=== PATIENT | female | born 1965 | race American Indian/Alaskan Native ===

== ENCOUNTER 2021-12-17 09:15 | Emergency (ER) | payer OTHER ==
[~2021-12-17] VITALS: Ht 165.1 cm; Wt 75.8 kg
== END 2021-12-17 10:30 | disposition home or self-care (01) ==
LOC: ED 09:15
DX: I10 Essential (primary) hypertension (principal); F41.9 Anxiety disorder, unspecified; Z79.899 Other long term (current) drug therapy
CPT/HCPCS: 99283

== ENCOUNTER 2023-09-17 00:14 | Emergency (ER) | payer OTHER ==
[~2023-09-17] VITALS: Ht 165.1 cm; Wt 85.0 kg
[2023-09-17] MEDS ORDERED: LISINOPRIL20 MG PO (00:25)
[2023-09-17 00:37] LABS: BASOPHILS 1.1 % (0-2); EOSINOPHILS 4.5 % (0-6); LYMPHOCYTES 28.7 % (24-44); MCH 29.8 (27-36); MCHC 34.2 g/dl (30-36); MCV 87.3 fl (81-99); MONOCYTES 10.7 % (0-12); PLATELET COUNT 310 K/uL (140-440); RBC 4.69 M/ul (4.3-5.7); RDW 14.3 (10.5-15.0)
[2023-09-17 00:57] LABS: ALBUMIN 3.4 g/dL (3.4-5.0); ALBUMIN/GLOBULIN RATIO 0.97 (1.1-2.4); ANION GAP 12.6 (7-21); BILIRUBIN, TOTAL 0.1 ng/dL (0.2-1.0); BUN/CREATININE RATIO 17.94 (6.0-28.6); CALCIUM 8.6 mg/dL (8.5-10.1); CREATININE, SERUM 0.78 mg/dL (0.55-1.02); MAGNESIUM 1.9 mg/dL (1.8-2.4); POTASSIUM 3.6 mmol/L (3.5-5.1); PROTEIN, TOTAL 6.9 g/dL (6.4-8.2)
[2023-09-17 01:00] VITALS: BP 133/90
--- NOTE | 2023-09-17 12:54 | EKG ---
[facility] [address] [place], [place] [address] Signed Normal sinus rhythm Normal ECG No previous ECGs available Confirmed by Thad De La O MD [id number]) on 09/17/2023 12:54:31 PM Electronically Signed By: THAD DE LA O 09/17/23 1254 PATIENT NAME: SHANELL DURHAM Electrocardiogram DATE OF : 67 PHYSICIAN: THAD DE LA O REPORT #: [id number] REPORT IS CONFIDENTIAL AND NOT TO BE RELEASED WITHOUT AUTHORIZATION
== END 2023-09-17 01:00 | disposition left against medical advice (07) ==
LOC: ED 00:14
PROVIDERS: Family Medicine
DX: I10 Essential (primary) hypertension (principal); Z79.899 Other long term (current) drug therapy
CPT/HCPCS: 36415; 80053; 83735; 84484; 85025; 93005; 93010; 99285